=== PATIENT | female | born 1995 | race Caucasian/White ===

== ENCOUNTER 2016-07-16 00:44 | Emergency (ER) | payer BC ==
[~2016-07-16] VITALS: Ht 154.9 cm; Wt 56.8 kg
[2016-07-16 00:53] VITALS: TEMP 37; Ht 154.9 cm; Wt 56.8 kg
[2016-07-16] MEDS ORDERED: ONDANSETRON INJ 2 MG/ML 2 ML VIAL IV STA (01:14)
[2016-07-16] MEDS ORDERED: SODIUM CHLORIDE 0.9% 1000ML 1,000 ML IV ONE (01:15)
[2016-07-16] MEDS ORDERED: MoRPHine SULFATE 4 MG/ML 1 ML CARP\\VIAL IV ONE (01:15)
[2016-07-16] MEDS ORDERED: NORGTAB36 PO (01:36)
[2016-07-16] MEDS ORDERED: MoRPHine SULFATE 2 MG/ML CARP ONE (01:37)
[2016-07-16 01:53] LABS: BASO % 0.1 %; BASO ABS # 0.01 K/uL (0-0.2); COMPLETE YES; EOS % 2.4 %; HEMATOCRIT 40.1 % (37-47); IG% 0.3 %; LYMPH % 42.3 %; LYMPH ABS # 3.13 K/uL (1.2-3.4); MEAN CELL VOLUME 85.7 fL (80-100); MEAN CORPUSCULAR HEMOGLOBIN 30.3 pg (25-34); MEAN CORPUSCULAR HGB CONC 35.4 g/dl (32-36); MEAN PLATELET VOLUME 10.3 fL (7.4-10.4); MONO % 9.3 %; NEUT % 45.6 %; PLATELET COUNT 254 K/uL (130-400); RED BLOOD COUNT 4.68 M/uL (4.2-5.4)
[2016-07-16 02:10] LABS: CREATININE 0.71 mg/dl (0.60-1.20)
[2016-07-16 02:11] LABS: BUN/CREATININE RATIO 11.8 (10-20); CALCIUM 8.8 mg/dl (8.5-10.1); POTASSIUM 3.4 mmol/L (3.5-5.1)
[2016-07-16 03:00] LABS: MANUAL MICROSCOPIC REQUIRED? NO; URINE APPEARANCE CLEAR (CLEAR); URINE BILIRUBIN NEG (NEG); URINE COLOR COLORLESS; URINE NITRITE NEG (NEG); URINE SPECIFIC GRAVITY <= 1.005 (1.000-1.030); UROBILINOGEN NEG (NEG)
[2016-07-16 03:03] LABS: REVIEW REQ? NO
[2016-07-16 03:04] LABS: ZZUR CULT IF INDIC CLEAN CATCH NO
[2016-07-16 03:11] VITALS: BP 113/70; PULSE 74; O2SAT 97
--- NOTE | 2016-07-16 05:13 | EMERGENCY ROOM VISIT NOTE ---
History First contact with patient: 01:03 Chief Complaint: PELVIC PAIN Stated Complaint: OVARIAN PAIN,DIZZY,SHAKY History of Present Illness The patient is a 20 year old female who presents to the Emergency Room with complaints of left lower quadrant abdominal pain for the past one hour. The patient states that she was at the grocery store when she began having pain in this area. She has a history of ovarian cyst in the past, and she states this feels similar to those episodes. She has not had nausea or vomiting. No history of abdominal surgery. No vaginal drainage or discharge. Her last menses was 2-3 weeks ago. She is on control and denies chance of . She rates her discomfort a /10. She has not taken anything over- the-counter for her pain. Review of Systems More than 10 systems were reviewed and otherwise negative with the exception of history of present illness. Past Medical/Surgical History History of ovarian cysts Family History No pertinent family history Social History Smoking Status: Never Smoker Occupation Status: [employer] student Current/Historical Medications Scheduled Norgestimate-Ethinyl Estradiol (Ortho Tri-Cyclen), 1 TAB PO DAILY Allergies Coded Allergies: Iodine (Verified Allergy, Severe, ANAPHYLAXIS, 07/16/16) Shellfish (Verified Allergy, Severe, ANAPHYLAXIS, 07/16/16) Physical Exam Vital Signs Date Time Temp Pulse Resp B/P Pulse Ox O2 Delivery O2 Flow Rate FiO2 07/16/16 03:11 74 18 113/70 97 Room Air 07/16/16 00:53 37.0 81 18 138/66 100 Room Air Pain Rating (0-10): 0 Physical Exam VITALS: Vitals are noted on the nurse's note and reviewed by myself. Vital signs stable. GENERAL: Well-developed, well-nourished, white female, who is in no acute distress and resting comfortably. Patient is cooperative with the examination. HEAD: Normocephalic atraumatic. HEART: Regular rate and rhythm without murmurs gallops or rubs. LUNGS: Clear to auscultation bilaterally without wheezes, rales or rhonchi. No retractions or accessory muscle use. ABDOMEN: Positive normal bowel sounds x 4. Soft with mild left lower quadrant tenderness on palpation. No rebound or guarding. No CVA tenderness. MUSCULOSKELETAL: No muscle atrophy, erythema, or edema noted. Full range of motion without joint tenderness in all extremities. Medical Decision & Procedures ER Provider Diagnostic Interpretation: Preliminary Findings Only See Final Report For Complete Findings US PELVIC/ENDOVA.5 centimeter left ovarian cyst. Otherwise, the ovaries are within normal limits bilaterally, without evidence of torsion. Uterus is unremarkable. No free fluid. Laboratory Results 07/16/16 01:35 Red Blood Count 4.68, Mean Corpuscular Volume 85.7, Mean Corpuscular Hemoglobin 30.3, Mean Corpuscular Hemoglobin Concent 35.4, Mean Platelet Volume 10.3, Neutrophils (%) (Auto) 45.6, Lymphocytes (%) (Auto) 42.3, Monocytes (%) (Auto) 9.3, Eosinophils (%) (Auto) 2.4, Basophils (%) (Auto) 0.1, Neutrophils # (Auto) 3.37, Lymphocytes # (Auto) 3.13, Monocytes # (Auto) 0.69, Eosinophils # (Auto) 0.18, Basophils # (Auto) 0.01 07/16/16 01:35 Test 07/16/16 01:14 07/16/16 01:35 07/16/16 01:40 Urine Test NEG (NEG) White Blood Count 7.40 K/uL (4.8-10.8) Red Blood Count 4.68 M/uL (4.2-5.4) Hemoglobin 14.2 g/dL (12.0-16.0) Hematocrit 40.1 % (37-47) Mean Corpuscular Volume 85.7 fL (80-100) Mean Corpuscular Hemoglobin 30.3 pg (25-34) Mean Corpuscular Hemoglobin Concent 35.4 g/dl (32-36) Platelet Count 254 K/uL (130-400) Mean Platelet Volume 10.3 fL (7.4-10.4) Neutrophils (%) (Auto) 45.6 % Lymphocytes (%) (Auto) 42.3 % Monocytes (%) (Auto) 9.3 % Eosinophils (%) (Auto) 2.4 % Basophils (%) (Auto) 0.1 % Neutrophils # (Auto) 3.37 K/uL (1.4-6.5) Lymphocytes # (Auto) 3.13 K/uL (1.2-3.4) Monocytes # (Auto) 0.69 K/uL (0.11-0.59) Eosinophils # (Auto) 0.18 K/uL (0-0.5) Basophils # (Auto) 0.01 K/uL (0-0.2) RDW Standard Deviation 39.9 fL (36.4-46.3) RDW Coefficient of Variation 12.7 % (11.5-14.5) Immature Granulocyte % (Auto) 0.3 % Immature Granulocyte # (Auto) 0.02 K/uL (0.00-0.02) Anion Gap 11.0 mmol/L (3-11) Est Creatinine Clear Calc Drug Dose 94.5 ml/min Estimated GFR () 141.1 Estimated GFR (Non- 121.8 BUN/Creatinine Ratio 11.8 (10-20) Calcium Level 8.8 mg/dl (8.5-10.1) Total Bilirubin 0.4 mg/dl (0.2-1) Aspartate Amino Transf (AST/SGOT) 18 U/L (15-37) Alanine Aminotransferase (ALT/SGPT) 23 U/L (12-78) Alkaline Phosphatase 62 U/L (45-117) Total Protein 7.8 gm/dl (6.4-8.2) Albumin 3.9 gm/dl (3.4-5.0) Globulin 3.9 gm/dl (2.5-4.0) Albumin/Globulin Ratio 1.0 (0.9-2) Urine Color COLORLESS Urine Appearance CLEAR (CLEAR) Urine pH 7.0 (4.5-7.5) Urine Specific Stockwell <= 1.005 (1.000-1.030) Urine Protein NEG (NEG) Urine Glucose (UA) NEG (NEG) Urine Ketones NEG (NEG) Urine Occult Blood NEG (NEG) Urine Nitrite NEG (NEG) Urine Bilirubin NEG (NEG) Urine Urobilinogen NEG (NEG) Urine Leukocyte Esterase NEG (NEG) Medications Administered Medications (Trade) Dose Ordered Sig/Jose A Route Start Time Stop Time Status Last Admin Dose Admin Sodium Chloride (Nss 1000ml) 1,000 ml @ 999 mls/hr Q1H1M ONCE IV 07/16/16 01:15 07/16/16 02:15 DC 07/16/16 01:15 999 MLS/HR Ondansetron HCl (Zofran Inj) 4 mg NOW STAT IV 07/16/16 01:14 07/16/16 01:15 DC 07/16/16 01:45 4 MG Morphine Sulfate (MoRPHine SULFATE INJ) 2 mg STK-MED ONCE .ROUTE 07/16/16 01:37 07/16/16 01:40 DC 07/16/16 01:44 2 MG ED Course Physical exam and history were performed. Nursing notes and EMR were reviewed. Patient appears to have left lower quadrant abdominal pain for about the past hour. On exam she does have some mild left lower quadrant tenderness on palpation. She does not appear toxic. IV access was established and labs were obtained. The patient was hydrated and medicated as above. I did elect to perform an ultrasound as she does have a history of ovarian cysts. The patient's blood work is as above and was reviewed. She does not have a significant elevated white blood cell count, anemia, bandemia, or gross electrolyte imbalance. Urine is without signs of infection. She is not . Ultrasound does show a 3.5 cm ovarian cyst, and clinically I feel this is likely the cause of her discomfort. She does not present like a torsion , or acute surgical abdomen. Repeat serial abdominal exams do not show any worsening of her symptoms. Overall the patient appears stable for discharge home. The patient will need close follow-up with her primary care physician or TECHNICAL SUPPORT ASSISTANT for further management. She was otherwise invited back to ER with any new, worsening, or concerning symptoms. The chart was completed utilizing [employer] Speech Voice Recognition Software. Grammatical errors, random word insertions, pronoun errors, and incomplete sentences are an occasional consequence of this system due to software limitations, ambient noise, and hardware issues. Any formal questions or concerns about the content, text, or information contained within the body of this dictation should be directly addressed to the provider for clarification. . Medical Decision Differential diagnosis: Etiologies such as appendicitis, diverticulitis, PUD, biliary pathology, UTI, pancreatitis, obstruction, mesenteric ischemia, aortic pathology, infections, inflammatory bowel disease, renal colic, as well as others were entertained. Impression Primary Impression: Left ovarian cyst Departure Information Dispostion Home / Self-Care Condition GOOD Forms HOME CARE DOCUMENTATION FORM, School Instructions, Additional Instructions: Patient was seen and evaluated in the emergency department for medica care. May return to work/school on 07/17/2016. Please excuse. IMPORTANT VISIT INFORMATION Patient Instructions My [facility] Additional Instructions You were seen and evaluated today on an emergency basis only. This is not a substitute for, or an effort to provide, complete comprehensive medical care. It is not possible to recognize and treat all injuries or illnesses in a single emergency department visit. For this reason it is recommended that you followup with your TECHNICAL SUPPORT ASSISTANT for ongoing care and evaluation. For baseline pain relief you may alternate ibuprofen and acetaminophen every 4 hours for pain control. Take 600 mg ibuprofen (Advil) and then 4 hours later take 1000 mg acetaminophen (Tylenol). Do not take more than 3000 mg acetaminophen in a single day. You are welcome to return to the emergency department anytime with new, worsening, or concerning symptoms. School Instructions Additional School Instructions: Patient was seen and evaluated in the emergency department for medical care. May return to work/school on 07/17/2016. Please excuse.
--- NOTE | 2016-07-16 07:08 | DIAGNOSTIC IMAGING REPORT ---
ULTRASOUND OF THE PELVIS CLINICAL HISTORY: Left pelvic pain. COMPARISON STUDY: No priors. TECHNIQUE: Real-time, grayscale, and color flow sonography of the pelvis is performed both transabdominally and endovaginally. Images are reviewed in the transverse and longitudinal planes. FINDINGS: Uterus: The uterus is normal in size and echotexture, measuring 7.4 x 4.2 x 4.3 cm. Endometrium: The endometrium is normal in appearance, and the endometrial stripe is normal in thickness measuring up to 0.4 cm. Ovaries: The ovaries are normal in size and morphology. The right ovary measures 3.0 x 1.4 x 1.6 cm and the left ovary measures 4.0 x 2.6 x 2.6 cm. A 3.5 cm simple appearing cyst is noted in the left ovary. Additional smaller follicles are seen bilaterally. Normal Doppler waveforms are shown within both ovaries. Pelvis: There is no free fluid in the cul-de-sac. No concerning adnexal lesion is seen. IMPRESSION: 1. There is a simple appearing 3.5 cm left ovarian cyst. There is no sonographic evidence of ovarian torsion at the time of examination. 2. The uterus and right ovary are normal in appearance. Electronically signed by: Anthony Hanson M.D. 07/16/2016 7:06 AM Dictated Date/Time: 07/16/2016 7:05 AM
== END 2016-07-16 03:25 | disposition home or self-care (01) ==
LOC: C.EDB 00:45
DX: N83.202 Unspecified ovarian cyst, left side (principal); Z91.018 Allergy to other foods; Z91.09 Other allergy status, other than to drugs and biological substances